=== PATIENT | male | born 1985 | race Caucasian/White ===

== ENCOUNTER 2016-12-07 13:28 | Emergency (ER) | payer OTHER ==
--- NOTE | 2016-12-07 13:59 | EDPHY ---
H & P Time Seen by Provider: 12/07/16 13:52 HPI/ROS: CHIEF COMPLAINT: Sore throat x1 week HISTORY OF PRESENT ILLNESS: 31-year-old immunocompetent male complaining of 1 week sore throat. No trismus no drooling. No change in voice. No fever no chills. Normal urine output. No chest pain. No cough. No nuchal rigidity. PRIMARY CARE PROVIDER: No primary care provider REVIEW OF SYSTEMS: A ten point review of systems was performed and is negative with the exception of the items mentioned in the HPI PAST MEDICAL & SURGICAL HISTORY: No pertinent medical or surgical history SOCIAL HISTORY: Nonsmoker PHYSICAL EXAM (Prior to examination, patient consented to physical exam, hands were washed and my usual and customary physical exam procedures followed) 1) GENERAL: Well-developed, well-nourished, alert and oriented. Appears t nontoxic . 2) HEAD: Normocephalic, atraumatic 3) HEENT: Pupils equal, round, reactive to light bilaterally. Sclera anicteric. Oropharynx: Trismus no drooling, no hot potato voice, bilateral tonsils are exudative, symmetrical, no pointing of the uvula evidence of peritonsillar retropharyngeal abscess. Ears bilaterally with normal tympanic membranes. 4) NECK: Full range of motion, no meningeal signs. positive submandibular adenopathy which is tender bilateral 5) LUNGS: Clear auscultation bilaterally, no wheezes, no rhonchi, no retractions. 6) HEART: Regular rate and rhythm, no murmur, no heave, no gallop. 7) ABDOMEN: No guarding, no rebound, no focal tenderness, 8) MUSCULOSKELETAL: Moving all extremities, no focal areas of tenderness, no obvious trauma. No peripheral edema or discoloration. 9) BACK: No CVA tenderness. 10) SKIN: No rash, no petechiae. 11) Psychiatric: Patient is oriented X 3, there is no agitation. DIFFERENTIAL DIAGNOSIS: in no particular include but limited to strep pharyngitis, retropharyngeal or peritonsillar abscess, mononucleosis Smoking Status: Current every day smoker Constitutional: Initial Vital Signs Temperature (C) 36.8 C 03/29/17 13:29 Heart Rate 86 12/07/16 13:29 Respiratory Rate 16 12/07/16 13:29 Blood Pressure 123/68 H 12/07/16 13:29 O2 Sat (%) 98 12/07/16 13:29 O2 Delivery Mode Room Air Allergies/Adverse Reactions: No Known Allergies Allergy (Unverified 12/07/16 13:35) Home Medications: Medication Instructions Recorded Amoxicillin/Clavulanate Pot 875 mg PO BID #14 tab 12/07/16 [Augmentin 875 mg tab] Ibuprofen [Motrin (*)] 600 mg PO Q6 #15 tab 12/07/16 methylPREDNISolone [Medrol Dose 4 mg PO DAILY #1 ea 12/07/16 Bandar] MDM/Departure - MDM ED Course/Re-evaluation: High clinical suspicion for strep pharyngitis. Doubt peritonsillar abscess plan will be empiric treatment with Augmentin, Medrol Dosepak, close follow up with ENT. Inquired about prior history of adverse or allergic reaction to steroids and he denies this. Usual and customary pharyngitis precautions and instructions provided. - Depart Disposition: Home, Routine, Self-Care Clinical Impression: Acute streptococcal pharyngitis Condition: Good Instructions: Strep Throat (ED) Additional Instructions: Return to the ER immediately if you cannot swallow, have drooling, fevers, neck stiffness, cannot open your jaw, or any other symptoms that concern you. Prescriptions: Amoxicillin/Clavulanate Pot [Augmentin 875 mg tab] 875 mg PO BID #14 tab Ibuprofen [Motrin (*)] 600 mg PO Q6 #15 tab methylPREDNISolone [Medrol Dose Bandar] 4 mg PO DAILY #1 ea Referrals: Jeanie Jarquin MD [Medical Doctor] - 1-2 days without fail
[2016-12-07 14:15] VITALS: BP 120/83; PULSE 94; RESP 20; TEMP 99; O2SAT 99
== END 2016-12-07 14:16 | disposition home or self-care (01) ==
DX: J02.0 Streptococcal pharyngitis (principal); F17.200 Nicotine dependence, unspecified, uncomplicated